=== PATIENT | male | born 1995 | race Caucasian/White ===

== ENCOUNTER 2017-09-18 21:30 | Emergency (ER) | payer OTHER ==
[~2017-09-18] VITALS: Ht 190.5 cm; Wt 115.7 kg
[2017-09-18 21:39] VITALS: BP 144/94
[2017-09-19] MEDS ORDERED: AZITHROMYCIN 250 MG TAB PO ONE (00:30)
[2017-09-19] MEDS ORDERED: cefTRIAXone SOD 1,000 MG VL IM ONE (00:30)
== END 2017-09-19 01:03 | disposition home or self-care (01) ==
LOC: ER 21:30
DX: Z20.2 Contact with and (suspected) exposure to infections with a predominantly sexual mode of transmission (principal)
CPT/HCPCS: 96372; 99283; J0696